=== PATIENT | female | born 1965 | race Caucasian/White ===

== ENCOUNTER 2017-03-29 05:45 | Observation (INO) | payer OTHER ==
[~2017-03-29] VITALS: Ht 162.6 cm; Wt 91.0 kg
[2017-03-29 07:17] VITALS: BP 128/78; PULSE 68; RESP 18; TEMP 98.4; O2SAT 98
[2017-03-29 08:04] VITALS: PULSE 73
[2017-03-29 08:25] VITALS: BP 110/74; PULSE 80; RESP 16; TEMP 97.9; O2SAT 95
--- NOTE | 2017-03-29 09:25 | HHI.HP ---
HPI Primary Care Physician Unknown Chief Complaint Chest pain History of Present Illness This is a 51-year-old female that presents to ED in [place] to evaluate chest discomfort and was then transferred to the chest pain center to be further evaluated. She states while at home about 30 she developed a discomfort in the center of chest that felt like "someone sitting on my chest." Discomfort was rated as an 8 out of 10. No shortness breath, nausea, or diaphoresis. The symptoms last 5-10 minutes but recurred maybe 5-6 times an hour for the next 4 hours. Currently no chest discomfort. There is nothing that brought on the discomfort. Nothing to improve or worsen it Cannot recall prior stress testing or heart catheterization. Recently told that her lipid panel was slightly abnormal but no medication at this time. States her doctor will recheck in April. Review of Systems General: Patient denies fevers, chills recent, and recent travel HEENT: Patient denies headache, sore throat, difficulty swallowing. Cardiovascular: Has the chest discomfort as mentioned above. Denies sensation of heart beating rapidly or irregularly. No syncope. Denies diaphoresis. Respiratory: Denies shortness of breath or inspirational chest discomfort. Denies coughing wheezing or hemoptysis. GI: Patient denies nausea, vomiting, diarrhea, abdominal pain, bloody stools. Musculoskeletal: Patient denies joint pain or edema. Denies calf pain or edema. Neurovascular: Patient denies numbness, tingling, weakness in extremities. Denies headache. Endocrine: Denies polyuria and polydipsia. Hematologic: Denies easy bruising. Skin: Denies rash or itching. Past Family Social History Allergies: Coded Allergies: No Known Allergies (Unverified , 03/28/17) Past Medical History Hypothyroidism. Hyperlipidemia but no medication at this time. Past tobacco use. Quit smoking 5 years ago but prior that smoked one pack a day for about 30 years. Denies hypertension, diabetes, and known CAD. Past Surgical History Tubal ligation. Reported Medications Levothyroxine: Alternating 1 or 50 g and 175 g daily. Family History Denies family history of CAD. Social History Quit smoking 5 years ago. Prior that one pack a day for approximately 30 years. Denies alcohol or illicit drugs. She is a teacher. Physical Exam Vital Signs Vital Signs Date Time Temp Pulse Resp B/P (MAP) Pulse Ox O2 Delivery O2 Flow Rate FiO2 03/29/17 08:25 97.9 80 16 110/74 (86) 95 03/29/17 07:17 98.4 68 18 128/78 (95) 98 Physical Exam GENERAL: This is a well-nourished, well-developed patient, in no apparent distress. Patient speaks in clear complete sentences. Patient is pleasant. HEENT: Head is atraumatic and normocephalic. Neck is supple without lymphadenopathy and trachea is midline. No JVD or carotid bruits. CARDIOVASCULAR: Regular rate and rhythm without murmurs, gallops, or rubs. RESPIRATORY: Clear to auscultation. Breath sounds equal bilaterally. No wheezes , rales, or rhonchi. Chest wall is nontender. No use of accessory muscles. GASTROINTESTINAL: Abdomen is nontender, nondistended. Abdomen soft. No obvious pulsatile mass or bruit. No CVA tenderness. Strong femoral pulses bilaterally. Normal bowel sounds in all quadrants. MUSCULOSKELETAL: Patient is moving upper and lower extremities freely. No calf tenderness or edema, no Homans sign. Strong pulses in upper and lower extremities. NEUROLOGICAL: Patient is alert and oriented. Cranial nerves 2-12 are grossly intact. No focal deficits and speech is clear. SKIN: No rash and turgor is normal. Laboratory Laboratory Tests Test 03/29/17 06:05 Troponin I LESS THAN 0.02 Imaging Chest x-ray read by radiologist as no acute abnormalities. Course EKGs are sinus rhythm with nonspecific lateral ST-T changes. Caprini VTE Risk Assessment Caprini VTE Risk Assessment: No/Low Risk (score <= 1) Caprini Risk Assessment Model Point Value = 1 Point Value = 2 Point Value = 3 Point Value = 5 Age 41-60 Minor surgery BMI > 25 kg/m2 Swollen legs Varicose veins or History of unexplained or recurrent spontaneous Oral contraceptives or hormone replacement Sepsis (< 1 month) Serious lung disease, including pneumonia (< 1 month) Abnormal pulmonary function Acute myocardial infarction Congestive heart failure (< 1 month) History of inflammatory bowel disease Medical patient at bed rest Age 61-74 Arthroscopic surgery Major open surgery (> 45 min) Laparoscopic surgery (> 45 min) Malignancy Confined to bed (> 72 hours) Immobilizing plaster cast Central venous access Age >= 75 History of VTE Family history of VTE Factor V Leiden Prothrombin [id number] Lupus anticoagulant Anticardiolipin antibodies Elevated serum homocysteine Heparin-induced thrombocytopenia Other congenital or acquired thrombophilia Stroke (< 1 month) Elective arthroplasty Hip, pelvis, or leg fracture Acute spinal cord injury (< 1 month) Prophylaxis Regimen Total Risk Factor Score Risk Level Prophylaxis Regimen 0-1 Low Early ambulation 2 Moderate Order ONE of the following: *Sequential Compression Device (SCD) *Heparin 5000 units SQ BID 3-4 Higher Order ONE of the following medications: *Heparin 5000 units SQ TID *Enoxaparin/Lovenox 40 mg SQ daily (WT < 150 kg, CrCl > 30 mL/min) *Enoxaparin/Lovenox 30 mg SQ daily (WT < 150 kg, CrCl > 10-29 mL/min) *Enoxaparin/Lovenox 30 mg SQ BID (WT < 150 kg, CrCl > 30 mL/min) AND/OR *Sequential Compression Device (SCD) 5 or more Highest Order ONE of the following medications: *Heparin 5000 units SQ TID (Preferred with Epidurals) *Enoxaparin/Lovenox 40 mg SQ daily (WT < 150 kg, CrCl > 30 mL/min) *Enoxaparin/Lovenox 30 mg SQ daily (WT < 150 kg, CrCl > 10-29 mL/min) *Enoxaparin/Lovenox 30 mg SQ BID (WT < 150 kg, CrCl > 30 mL/min) AND *Sequential Compression Device (SCD) Assessment and Plan Assessment and Plan * Chest pain: Patient has had serial cardiac enzymes and EKGs for ruling out purposes. She will be seen by Dr. Mcbride in the chest pain center. She will undergo a nuclear ETT and likely be discharged if her stress test is nonischemic. She should follow-up with her PCP. She should return to ED for enteral issues. * Hyperlipidemia: Patient states that she was recently told that her lipid panel is abnormal but her doctors trying diet control first. She should have this rechecked with her physician within the month. * Hypothyroidism: Continue current medication. Patient is stable this time. She is agreeable to this plan. Mariano Garcia Mar 29, 2017 09:25
[2017-03-29] MEDS ORDERED: LEVO150T7 PO (13:32)
[2017-03-29] MEDS ORDERED: LEVO-154 PO (13:32)
--- NOTE | 2017-03-29 13:47 | TR ---
Date Performed: 03/29/2017 Time Performed: 12:20:39 DOCTOR: Wade Mcbride DRUG LIST: CLINICAL HISTORY: REASON FOR TEST: Chest pain REASON FOR ENDING: OBSERVATION: CONCLUSION: SP PROTOCOL NUC ETT. NO CP. MILD SOB.Maximum WR=457 % Max HR Achieved=89.0% Maxim um GO=113/66 Total Exercise Time=6:31 COMMENTS: Conclusion: Normal treadmill exercise. No evidence of ischemia. Radionuclide was inje cted one minute prior to ending test. Nuclear imaging and interpretation are pending.
[2017-03-29 13:53] VITALS: BP 121/81; PULSE 81; RESP 18; TEMP 98; O2SAT 95
--- NOTE | 2017-03-29 13:54 | RADRPT ---
EXAM DATE/TIME: 03/29/2017 11:51 [facility] COMPARISON: No previous studies available for comparison. INDICATIONS : Midsernal chest pain. Angina DOSE: 26.1 mCi Tc99m Myoview at stress 8.7 mCi Tc99m Myoview at rest REST HEART RATE: 89 BPM TARGET HEART RATE: 144 BPM MAX HEART RATE: 151 BPM REST BLOOD PRESSURE: 118/80 mmHg MAX BLOOD PRESSURE: 156/78 mmHg EJECTION FRACTION: 60% MEDICAL HISTORY : None SURGICAL HISTORY : None. ENCOUNTER: Initial ACUITY: 1 day PAIN SCALE: 8/10 LOCATION: Midsternal chest TECHNIQUE: The patient underwent upright treadmill exercise in the chest pain center. Continuous ECG tracing wa s monitored during stress. Gated SPECT imaging was performed after stress, and conventional SPECT im aging was performed at rest. The examination was performed on a SPECT/CT scanner, both attenuation-c orrected and non-corrected datasets were reviewed. FINDINGS: DISTRIBUTION: The maximum perfused segment at stress is in the anterolateral wall. PERFUSION STUDY: The pattern of perfusion at stress is within normal limits. GATED STUDY: There is intact wall motion and thickening without hypokinetic or dyskinetic segments. CONCLUSION: 1. Negative exam. No scintigraphic findings of infarct or ischemia 2. Excellent wall motion throughout with an estimated ejection fraction of 60% RISK CATEGORY: Low (<1% Annual Mortality Rate) Tyrell Moya MD on March 29, 2017 at 13:51 Board Certified Radiologist. This report was verified electronically.
--- NOTE | 2017-03-29 14:13 | HHI.DCPOC ---
Discharge Care Plan Diagnosis: (1) Chest pain Goals to Promote Your Health * To prevent worsening of your condition and complications * To maintain your health at the optimal level Directions to Meet Your Goals Take your medications as prescribed Follow your dietary instruction Follow activity as directed Keep your appointments as scheduled Take your immunizations and boosters as scheduled If your symptoms worsen call your PCP, if no PCP go to Urgent Care Center or Emergency Room Smoking is Dangerous to Your Health. Avoid second hand smoke Call the 24-hour hour crisis hotline for domestic abuse at Mariano Garcia Mar 29, 2017 14:13
== END 2017-03-29 15:26 | disposition home or self-care (01) ==
LOC: NEDDLT 05:45 → NEPHCDU 05:46
DX: R07.9 Chest pain, unspecified (principal); E03.9 Hypothyroidism, unspecified; E78.5 Hyperlipidemia, unspecified; Z87.891 Personal history of nicotine dependence; Z79.899 Other long term (current) drug therapy
CPT/HCPCS: 71010; 78452; 80053; 82550; 82552; 83735; 84484; 85025; 85610; 85730; 93005; 93017; 99285; A9502; G0378; 99284